=== PATIENT | female | born 1990 | race Caucasian/White ===

== ENCOUNTER 2017-04-14 18:14 | Outpatient (CLI) | payer OTHER ==
[2017-04-14] MEDS ORDERED: PRENATAL ONE T1 EACH PO (19:59)
== END 2017-04-14 21:05 | disposition home or self-care (01) ==
LOC: OBS/DEL 18:14
DX: O26.893 Other specified pregnancy related conditions, third trimester (principal); Z04.1 Encounter for examination and observation following transport accident; O60.03 Preterm labor without delivery, third trimester; Z34.03 Encounter for supervision of normal first pregnancy, third trimester; V43.92XA Unspecified car occupant injured in collision with other type car in traffic accident, initial encounter; Y93.89 Activity, other specified; Y92.488 Other paved roadways as the place of occurrence of the external cause; Y99.8 Other external cause status

== ENCOUNTER 2017-05-20 11:31 | Inpatient (IN) | payer OTHER ==
[~2017-05-20] VITALS: Ht 170.2 cm; Wt 68.0 kg
[~2017-05-20 11:31] MED LIST: PRENATAL ONE T1 EACH PO
[2017-05-22] MEDS ORDERED: MIRALAX17 GM PO (12:55)
[2017-05-22] MEDS ORDERED: OXYC1TAB9 PO (12:55)
== END 2017-05-22 14:45 | disposition home or self-care (01) | DRG 766 ==
LOC: OB/GYN 11:31 → LDR 11:31 → O/R 15:22 → OB/GYN 16:07
PROVIDERS: Obstetrics & Gynecology
PROC: 0UT70ZZ Resection of Bilateral Fallopian Tubes, Open Approach (ICD-10-PCS; 2017-05-20)
PROC: 4A1HXCZ Monitoring of Products of Conception, Cardiac Rate, External Approach (ICD-10-PCS; 2017-05-20)
PROC: 4A033R1 Measurement of Arterial Saturation, Peripheral, Percutaneous Approach (ICD-10-PCS; 2017-05-20)
PROC: 10D00Z1 Extraction of Products of Conception, Low, Open Approach (ICD-10-PCS; principal; 2017-05-20 14:15)
DX: O32.1XX0 Maternal care for breech presentation, not applicable or unspecified (principal); Z3A.39 39 weeks gestation of pregnancy; Z37.0 Single live birth; Z30.2 Encounter for sterilization; Z64.1 Problems related to multiparity